=== PATIENT | male | born 1950 | race Caucasian/White ===

== ENCOUNTER → 2020-01-21 08:55 | Outpatient (CLI) | payer MEDICARE, OTHER, SELFPAY | PROVIDERS: PCP Podiatrist; Referring Provider Podiatrist; Visit Provider Family Medicine | DX: E11.52 Type 2 diabetes mellitus with diabetic peripheral angiopathy with gangrene (principal); L97.528 Non-pressure chronic ulcer of other part of left foot with other specified severity; M79.675 Pain in left toe(s); L08.89 Other specified local infections of the skin and subcutaneous tissue | CPT/HCPCS: 36415; 73630; 80053; 83036; 84134; 85025; 85651; 86140; 99203; 99215 ==

== ENCOUNTER → 2020-01-21 09:46 | Outpatient (CLI) | payer MEDICARE, OTHER, SELFPAY ==
--- NOTE | 2020-01-21 | DI.RAD.S_ITS ---
PROCEDURE: XR FOOT LT MIN 3V INDICATIONS: LEFT DISTAL HALLUX, EVALUATE OSTEOMYELITIS TECHNIQUE: 3 views of the foot were acquired. COMPARISON: None. FINDINGS: Bones: No fractures or dislocations. No suspicious bony lesions. Soft tissues: No tibiotalar joint effusion. Achilles tendon appears normal. IMPRESSION: No suspicious cortical erosions to suggest osteomyelitis. Although no bony erosions are identified, plain film radiography is relatively insensitive in the acute phases of osteomyelitis and may not demonstrate radiographic changes for 15 days. If acute osteomyelitis is of clinical concern, nuclear medicine regional bone scan or MRI is recommended. Dictated by: Stephanie Rajput M.D. on 01/21/2020 at 14:43 Approved by: Stephanie Rajput M.D. on 01/21/2020 at 14:44
[2020-01-21 12:31] LABS: Add Manual Diff / Slide Review NO; Basophils Absolute Auto 0 /uL (0-100); Basophils Percent Auto 0.6 % (0-2); Eosinophils Absolute Auto 300 /uL (0-450); Eosinophils Percent Auto 3.9 % (2-4); Hematocrit 47.6 % (41-53); Hemoglobin 16.1 g/dL (13.5-17.5); Lymphocytes Absolute Auto 1800 /uL (1100-4500); Lymphocytes Percent Auto 26.5 % (25-40); Mean Corpuscular HGB Conc 33.7 % (30-36); Mean Corpuscular Hemoglobin 31.2 PG (26-34); Mean Corpuscular Volume 92.5 fL (80-100); Monocytes Absolute Auto 500 /uL (0-900); Monocytes Percent Auto 7.6 % (3-14); Neutrophils Absolute Auto 4100 /uL (1500-7000); Neutrophils Percent Auto 61.4 % (50-75); Platelet Count 163 X10^3/uL (150-400); Red Blood Cell Count 5.15 X10^6/uL (4.5-5.9); Red Cell Distribution Width 12.2 % (11.6-14.8); White Blood Cell Count 6.7 X10^3/uL (4.5-11.0)
[2020-01-21 12:43] LABS: Hemoglobin A1C% w Est Avg Glu 7.2 % (4.0-6.0)
[2020-01-21 12:44] LABS: Alanine Aminotransferase 46 IU/L (<50); Albumin 4.3 g/dL (3.5-5.0); Albumin Globulin Ratio 1.4 (1.0-2.8); Alkaline Phosphatase 86 U/L (38-126); Aspartate Aminotransferase 40 IU/L (17-59); BUN Creatinine Ratio 24.2 (6-22); Bilirubin Total 0.9 mg/dL (0.2-1.3); Blood Urea Nitrogen 15 mg/dL (9-20); Calcium 9.4 mg/dL (8.4-10.2); Carbon Dioxide 30 mmol/L (22-32); Chloride 101 mmol/L (98-107); Estimated Glomerular Filt Rate > 60.0 mL/min (>60); Globulin 3.1 g/dL (1.7-4.1); Glucose 171 mg/dL (80-110); HEMOLYSIS 25 (0-50); Potassium 4.3 mmol/L (3.4-5.1); Sodium 138 mmol/L (137-145); Total Protein 7.4 g/dL (6.3-8.2)
[2020-01-21 12:48] LABS: C-Reactive Protein Quant < 0.5 mg/dL (<1.0)
[2020-01-21 12:52] LABS: Prealbumin 30.2 mg/dL (17.6-36.0)
[2020-01-21 13:10] LABS: Erythrocyte Sedimentation Rate 2 MM/HR (0-15)
== END ==
PROVIDERS: PCP Podiatrist; Referring Provider Family Medicine; Visit Provider Family Medicine
DX: E11.52 Type 2 diabetes mellitus with diabetic peripheral angiopathy with gangrene (principal); L97.528 Non-pressure chronic ulcer of other part of left foot with other specified severity; L08.89 Other specified local infections of the skin and subcutaneous tissue
CPT/HCPCS: 36415; 73630; 80053; 83036; 84134; 85025; 85651; 86140

== ENCOUNTER → 2020-01-28 11:08 | Outpatient (CLI) | payer MEDICARE, OTHER, SELFPAY | PROVIDERS: PCP Podiatrist; Referring Provider Podiatrist; Visit Provider Family Medicine | DX: E11.52 Type 2 diabetes mellitus with diabetic peripheral angiopathy with gangrene (principal); L97.528 Non-pressure chronic ulcer of other part of left foot with other specified severity; M79.675 Pain in left toe(s) | CPT/HCPCS: 99213 ==

== ENCOUNTER → 2024-12-05 08:46 | Outpatient (CLI) | payer MEDICARE, OTHER, SELFPAY ==
--- NOTE | 2024-12-05 08:50 | DI.CT.S_ITS ---
PROCEDURE: CT KIDNEY URETER BLADDER (KUB) INDICATIONS: bladder calculus TECHNIQUE: CT of the abdomen and pelvis was obtained without intravenous contrast. Coronal and sagittal reformats were performed. For radiation dose reduction, the following was used: automated exposure control, adjustment of mA and/or kV according to patient size. COMPARISON: None. FINDINGS: Image quality: Diagnostic. Lower Chest: Pulmonary micronodule right lower lobe. No follow-up is recommended per consensus guidelines. Coronary calcifications. ABDOMEN: Liver: No contour-deforming mass. Simple hepatic cysts left lobe. Gallbladder: Gallbladder is contracted with calcified gall stone in the fundus. Biliary ducts: No biliary dilation. Pancreas: No ductal dilation. Spleen: Size is within normal limits. Adrenal Glands: No adrenal nodules. Kidneys and Ureters: Bilateral nonobstructing renal calculi. The largest is in the right midpole measuring 6 mm. Calculus in the left ureter at the ureterovesicular junction measuring 9 x 6 x 4 mm. Stomach and Bowel: Normal colonic caliber, without significant wall thickening. Normal appendix. Diverticulosis. Peritoneum: No abnormal intraperitoneal fluid. No free air. Ventral Wall: No significant hernia. Abdominal Nodes: No retroperitoneal or mesenteric adenopathy by size criteria. Vessels: Aorta and inferior vena cava are normal in size. PELVIS: Pelvic Organs: Approximately with coarse calcification. Bladder: Bladder is contracted with diffuse wall thickening. Pelvic Nodes: No enlarged lymph nodes. Miscellaneous: Small bilateral fat containing inguinal hernias. Bones: No aggressive osseous abnormality. IMPRESSION: Nonobstructing 9 mm left ureterovesicular calculus. Additional nonobstructing renal calculi bilaterally. Cholelithiasis.7 Dictated by: Peter Slater M.D. on 12/05/2024 at 13:05 Approved by: Peter Slater M.D. on 12/05/2024 at 13:19
== END ==
LOC: CT 08:49
PROVIDERS: Referring Provider Urology; Visit Provider Urology
DX: N20.2 Calculus of kidney with calculus of ureter (principal); K80.20 Calculus of gallbladder without cholecystitis without obstruction; R31.9 Hematuria, unspecified; N21.0 Calculus in bladder; I25.10 Atherosclerotic heart disease of native coronary artery without angina pectoris; K76.89 Other specified diseases of liver; K57.90 Diverticulosis of intestine, part unspecified, without perforation or abscess without bleeding; K40.20 Bilateral inguinal hernia, without obstruction or gangrene, not specified as recurrent
CPT/HCPCS: 74176

== ENCOUNTER → 2024-12-11 12:00 | Outpatient (CLI) | payer MEDICARE, OTHER, SELFPAY | PROVIDERS: Visit Provider Physician Assistant | DX: E11.621 Type 2 diabetes mellitus with foot ulcer (principal); L97.509 Non-pressure chronic ulcer of other part of unspecified foot with unspecified severity | CPT/HCPCS: 87070; 87075; 87205 ==

== ENCOUNTER → 2024-12-11 12:10 | Outpatient (CLI) | payer MEDICARE, OTHER, SELFPAY ==
--- NOTE | 2024-12-11 12:13 | DI.RAD.S_ITS ---
PROCEDURE: XR TOE LT MIN 2V INDICATIONS: wound tip of toe, r/o osteo, 1 digit TECHNIQUE: 3 views of the left great toe(s) acquired. COMPARISON: None. FINDINGS: Bones: Diffuse osseous demineralization. Questionable erosion of the medial distal tuft of the great toe. 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 Soft tissue wound along the medial great toe distal phalanx with small gas foci. No radiopaque retained foreign body IMPRESSION: Questionable osseous erosion along the medial tuft of the great toe is concerning for osteomyelitis with overlying soft tissue wound. Dictated by: Dre Britt M.D. on 12/11/2024 at 12:43 Approved by: Dre Britt M.D. on 12/11/2024 at 12:45
== END ==
PROVIDERS: Referring Provider Physician Assistant; Visit Provider Physician Assistant
DX: E11.621 Type 2 diabetes mellitus with foot ulcer (principal); L97.509 Non-pressure chronic ulcer of other part of unspecified foot with unspecified severity; M19.072 Primary osteoarthritis, left ankle and foot
CPT/HCPCS: 73660; 87070; 87075; 87147; 87205

== ENCOUNTER → 2024-12-15 15:42 | Outpatient (CLI) | payer MEDICARE, OTHER, SELFPAY ==
--- NOTE | 2024-12-15 15:47 | DI.US.S_ITS ---
PROCEDURE: US ARTERIAL DUPLEX LE LT INDICATIONS: wound to great toe, hx with stent TECHNIQUE: Color and pulse Doppler interrogation was performed of the left lower extremity arterial system, with image documentation. COMPARISON: None. FINDINGS: Common femoral artery: 58 cm/sec, with triphasic flow. Deep femoral artery: 59 cm/sec, with by phase flow. Proximal superficial femoral artery: 82 cm/sec, with monophasic flow. Mid superficial femoral artery: Occluded. Distal superficial femoral artery: 43 cm/sec, with monophasic flow. Popliteal artery: 3 0 cm/sec, with monophasic flow. IMPRESSION: 1. 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 2. There is no flow seen below the knee, probably also occluded. Dictated by: Oneil Louis M.D. on 12/15/2024 at 18:54 Approved by: Oneil Louis M.D. on 12/15/2024 at 18:57
--- NOTE | 2024-12-15 15:47 | DI.MRI.S_ITS ---
PROCEDURE: MR FOOT LT WO/W CON INDICATIONS: wound to tip of toe, r/o osteomyelitis TECHNIQUE: Multiphasic, multisequence MRI of the forefoot was performed, before and after intravenous contrast administration. COMPARISON: None. FINDINGS: Image quality: Excellent. Bones and joints: No suspicious osseous enhancement. No confluent bone marrow replacement. No bone marrow contusions or metatarsal stress fractures. The sesamoid bones appear in expected positions, without internal edema. No metatarsophalangeal joint degeneration. No intraosseous lesions. Soft tissues: Postcontrast enhancement the nail of the great toe and of the distal plantar subcutaneous fat and dermis of the 3rd toe and to a lesser extent the 2nd toe. There is minimal associated edema on fluid sensitive sequences. There is decreased T1 fat signal, which may represent callus formation versus fibrosis. The visualized plantar foot muscles demonstrate moderate atrophy without focal intramuscular abscess or postcontrast enhancement. 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 No associated abnormal enhancement to suggest infectious or inflammatory myositis. Visualized flexor and extensor tendons appear intact, without tenosynovitis. The distal insertions of the peroneus brevis and longus tendons appear intact. The principal Lisfranc ligament appears intact. No soft tissue ganglion cysts or bursal fluid collections. Sagittal images demonstrate no evidence for plantar plate tears. IMPRESSION: 1. No osteomyelitis. 2. Soft tissue enhancement of the plantar 3rd toe, correlate with physical exam findings for cellulitis. 3. Enhancement of the great toe nail may be secondary to underlying fungal infection, correlate with physical exam findings. Dictated by: Dre Britt M.D. on 12/15/2024 at 19:12 Approved by: Dre Britt M.D. on 12/15/2024 at 19:17
== END ==
LOC: MRI 15:46
PROVIDERS: Referring Provider Physician Assistant; Visit Provider Physician Assistant
DX: M86.9 Osteomyelitis, unspecified (principal); E11.621 Type 2 diabetes mellitus with foot ulcer; L97.509 Non-pressure chronic ulcer of other part of unspecified foot with unspecified severity; I73.9 Peripheral vascular disease, unspecified; I77.1 Stricture of artery
CPT/HCPCS: 73720; 93926; A9579

== ENCOUNTER → 2024-12-18 08:30 | Outpatient (CLI) | payer MEDICARE, OTHER, SELFPAY | PROVIDERS: Family Provider Physician Assistant; Referring Provider Physician Assistant; Visit Provider Surgery | DX: E11.621 Type 2 diabetes mellitus with foot ulcer (principal); L97.522 Non-pressure chronic ulcer of other part of left foot with fat layer exposed; E11.42 Type 2 diabetes mellitus with diabetic polyneuropathy; I73.9 Peripheral vascular disease, unspecified | CPT/HCPCS: 11042; 87070; 87075; 87205; 99203; 99214 ==

== ENCOUNTER → 2024-12-25 09:56 | Outpatient (CLI) | payer MEDICARE, OTHER, SELFPAY | LOC: WC 09:58 | PROVIDERS: Family Provider Physician Assistant; PCP Physician Assistant; Referring Provider Physician Assistant; Visit Provider Surgery | DX: E11.621 Type 2 diabetes mellitus with foot ulcer (principal); L97.522 Non-pressure chronic ulcer of other part of left foot with fat layer exposed; I70.245 Atherosclerosis of native arteries of left leg with ulceration of other part of foot; E11.51 Type 2 diabetes mellitus with diabetic peripheral angiopathy without gangrene; E11.40 Type 2 diabetes mellitus with diabetic neuropathy, unspecified; I25.10 Atherosclerotic heart disease of native coronary artery without angina pectoris; Z95.820 Peripheral vascular angioplasty status with implants and grafts; Z89.411 Acquired absence of right great toe; Z79.01 Long term (current) use of anticoagulants; Z87.891 Personal history of nicotine dependence; I10 Essential (primary) hypertension; E78.5 Hyperlipidemia, unspecified | CPT/HCPCS: 11042 ==